=== PATIENT | female | born 1940 | race Caucasian/White ===

== ENCOUNTER 2018-09-22 09:11 | Emergency (ER) | payer MEDICARE, OTHER ==
--- OUTSIDE RECORDS SUMMARY | 2018-09-22 09:25 | XMS REPORT | Continuity of Care Document ---
:1940 External Reference #:[id number] Author Name Woody Ron MD Address [address] [place] [address] Care Team Providers Name Role Phone Miguelito Turpin MD Care Team Information Lace Inspector Unavailable Miguelito Turpin MD Primary Care Physician Unavailable Payers Date Identification Numbers Payment Provider Subscriber Policy Number: [id number] Medicare Shikaty Nunez PayID: [id number] [address] [place] [address] Expires: 2014 Policy Number: [id number] Lifetime Benefit Shikaty Nunez Solution PayID: [facility] [address] [address] [place] [address] Effective: 2014 Policy Number: Lifetime Benefit Shikaty Nunez [id number] Solution PayID: [facility] [address] [address] [place] [address] Problems Active Problems Provider Date Chronic obstructive lung disease Chilango Parada M.D., Onset: 05/01/2018 FAC 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., 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, bronchus and lung FACC Alcohol abuse, uncomplicated Chilango Parada M.D., Onset: 02/16/2018 FACC Syncope and collapse Chilango Parada M.D., Onset: 02/16/2018 FACC Malignant neoplasm of upper lobe, Chilango Parada M.D., Onset: 2017 bronchus or lung [facility] Essential hypertension Chilango Parada M.D., Onset: 06/26/2015 [facility] Mitral valve disorder Chilango Parada M.D., Onset: 02/14/2014 [facility] Aortic aneurysm Chilango Parada M.D., Onset: 02/14/2014 [facility] Tobacco user Chilango Parada M.D., Onset: 01/31/2012 [facility] Primary cardiomyopathy Chilango Parada M.D., Onset: 01/31/2012 [facility] Congestive heart failure Chilango Parada M.D., Onset: 01/31/2012 [facility] Family History Date Family Member(s) Observation Comments Father due to Unknown Causes () Father Heart Attack 81 Mother Melanoma 80 Social History Type Date Description Comments Sex Unknown Marital Status from liver cancer (1986) Lives With Alone Home Environment Lives Alone Diet Patient is on a low sodium diet Diet Patient is on a low fat diet 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 ADL's/IADL's Independent with all ADL's Tobacco Use Start: Unknown Current Cigarette Smoker 5-10 Cigarettes Daily Cigarette Use Pack Years - 56 ETOH Use Occasionally consumes alcohol Tobacco Use Start: Unknown Heavy tobacco smoker (more than 10 cigarettes/day) Recreational Drug Use Never Used Drugs Smoking Status Reviewed: 08/24/18 Heavy tobacco smoker (more than 10 cigarettes/day) Exercise Type/Frequency Exercises sporadically Allergies, Adverse Reactions, Alerts Active Allergies Reaction Severity Comments Date Sulfa Drugs 01/31/2012 Latex Swelling And Itching 06/20/2014 Codeine 06/20/2014 Oxycodone Percocet 06/20/2014 Spironolactone Hyperkalemia 12/23/2014 Medications Active Medications SIG Qnty Indications Ordering Provider Date Carvedilol Take One Tablet 180tabs I10 Perla Gomez 07/10/2015 25mg Tablets By Mouth Twice A Ledy, MSN, Day LOAN ASSOCIATE Ramipril Take One Capsule 90caps Chilango Parada 06/26/2015 10mg Capsules By Mouth Every Nato Boo, [facility] Day Spiriva Handihaler 1 by mouth every 30caps Woody Ron MD day 18mcg Capsules Aspirin Ec 1 po qd 60tabs Unknown 500mg Tablets DR Javier 1 po qweek Unknown 70mg Tablets Atorvastatin Calcium Take One Tablet 90tabs Chilango Parada By Mouth Every Nato Boo, [facility] 20mg Tablets Day History Medications Pred Forte 1 gtt qd Chilango Parada 03/21/2014 - 1% Suspension Nato Boo, [facility] Unknown Carvedilol 1 by mouth 180tabs Ines0 Ger Howell MD 03/21/2014 - 12.5mg Tablets twice a day 07/10/2015 Carvedilol 1 by mouth 180tabs Chilango Parada 02/14/2014 - 6.25mg Tablets twice a day Nato Boo, [facility] 03/21/2014 Ramipril Take One 90caps Chilango Parada 05/10/2012 - 5mg Capsules Capsule By Nato Boo, [facility] 06/26/2015 Mouth Every Day Spironolactone take one tablet 90tabs Mauricio Lira, 01/31/2012 - 25mg by mouth every , PhD 06/20/2014 Tablets day Carvedilol Take One Tablet 180tabs Chilango Parada 01/31/2012 - 3.125mg By Mouth Twice Nato Boo, [facility] 02/14/2014 Tablets A Day Furosemide 1 po qd prn 90tabs Chilango Parada 01/31/2012 - 40mg Tablets Nato Boo, [facility] Unknown Multi Complete 1 by mouth Unknown - Capsules every day Unknown Prednisone 4mg every am-- 270tabs Unknown - 1mg Tablets tapered dose Unknown Doxycycline by mouth twice 30caps Unknown - 150mg a day Unknown Capsules Vitamin B-1 po qd Unknown - 100mg Tablets Unknown Thiamine HCL 1 po qd Unknown - 100mg Unknown Tablets Apap Extra Strength 2 po tid Unknown - 500mg Unknown Tablets Albuterol Sulfate prn Unknown - Unknown (2.5mg/3ML) 0.083% Nebulizer Magnesium Oxide 400 1 po tid Unknown - 400mg Unknown Tablets Folic Acid 1 po qd 30tabs Unknown - 1mg Tablets Unknown Vitamin B-1 po qd Unknown - 100mg Tablets Unknown Lactobacillus 1 po qd Unknown - Acidophilus Unknown Powder Furosemide 1 po qd 30tabs Unknown - 40mg Tablets 01/31/2012 Digoxin 1 po qd 30tabs Unknown - 0.125mg Tablets 01/31/2012 Avelox po qd Unknown - 400mg Tablets Unknown Advair Diskus 2 puff bid Unknown - 05/03/2018 100-50mcg/Dose Aerosol Amlodipine Besylate 1 po qd 30tabs Unknown - 2.5mg 01/31/2012 Tablets Vital Signs Date Vital Result Comment 08/24/2018 1:32pm BP Systolic Sitting Left Arm 124 mmHg BP Diastolic Sitting Left Arm 72 mmHg Heart Rate 77 /min Respiratory Rate 17 /min Height 62 inches 5'2" Weight 98.00 lb BMI (Body Mass Index) 17.9 kg/m2 BSA (Body Surface Area) 1.41 m2 [place] body weight in kilograms 50 kg O2 % BldC Oximetry 96 % 05/03/2018 3:53pm BP Systolic Sitting Left Arm 120 mmHg BP Diastolic Sitting Left Arm 80 mmHg Heart Rate 72 /min Respiratory Rate 16 /min Height 62 inches 5'2" Weight 100.00 lb BMI (Body Mass Index) 18.3 kg/m2 BSA (Body Surface Area) 1.42 m2 [place] body weight in kilograms 50 kg O2 % BldC Oximetry 99 % 05/01/2018 11:13am BP Systolic Sitting Left Arm 138 mmHg BP Diastolic Sitting Left Arm 75 mmHg Heart Rate 62 /min Respiratory Rate 18 /min Height 62 inches 5'2" Weight 98.00 lb BMI (Body Mass Index) 17.9 kg/m2 BSA (Body Surface Area) 1.41 m2 [place] body weight in kilograms 50 kg O2 % BldC Oximetry 97 % 04/05/2018 3:01pm BP Systolic Sitting Left Arm 182 mmHg BP Diastolic Sitting Left Arm 111 mmHg Heart Rate 49 /min Respiratory Rate 20 /min Height 62 inches 5'2" Weight 97.00 lb BMI (Body Mass Index) 17.7 kg/m2 BSA (Body Surface Area) 1.41 m2 [place] body weight in kilograms 50 kg O2 % BldC Oximetry 90 % 02/16/2018 8:33am BP Systolic Sitting Left Arm 118 mmHg BP Diastolic Sitting Left Arm 62 mmHg Heart Rate 83 /min Respiratory Rate 16 /min Weight 102.00 lb O2 Saturation Level with Exercise 96 % 08/10/2017 8:50am BP Systolic Sitting Left Arm 114 mmHg BP Diastolic Sitting Left Arm 82 mmHg Heart Rate 77 /min Respiratory Rate 16 /min Height 62 inches 5'2" Weight 100.00 lb BMI (Body Mass Index) 18.3 kg/m2 BSA (Body Surface Area) 1.42 m2 [place] body weight in kilograms 50 kg 02/07/2017 8:49am BP Systolic Sitting Right Arm 124 mmHg BP Diastolic Sitting Right Arm 88 mmHg Heart Rate 80 /min Respiratory Rate 16 /min Height 62 inches 5'2" Weight 104.00 lb BMI (Body Mass Index) 19.0 kg/m2 BSA (Body Surface Area) 1.45 m2 [place] body weight in kilograms 50 kg 08/09/2016 8:24am BP Systolic Sitting Left Arm 132 mmHg BP Diastolic Sitting Left Arm 84 mmHg Heart Rate 71 /min Respiratory Rate 16 /min Height 62 inches 5'2" Weight 106.00 lb BMI (Body Mass Index) 19.4 kg/m2 BSA (Body Surface Area) 1.46 m2 02/11/2016 10:26am BP Systolic Sitting Left Arm 140 mmHg BP Diastolic Sitting Left Arm 80 mmHg Heart Rate 72 /min Respiratory Rate 16 /min Height 62 inches 5'2" Weight 100.00 lb BMI (Body Mass Index) 18.3 kg/m2 BSA (Body Surface Area) 1.42 m2 08/11/2015 11:00am BP Systolic Standing Resting Right Arm 130 mmHg BP Diastolic Standing Resting Right Arm 82 mmHg Heart Rate 65 /min Height 62 inches 5'2" Weight 105.00 lb BMI (Body Mass Index) 19.2 kg/m2 BSA (Body Surface Area) 1.45 m2 07/10/2015 9:25am BP Systolic Sitting Left Arm 152 mmHg BP Diastolic Sitting Left Arm 90 mmHg Heart Rate 80 /min Respiratory Rate 16 /min Height 62 inches 5'2" Weight 104.00 lb BMI (Body Mass Index) 19.0 kg/m2 BSA (Body Surface Area) 1.45 m2 06/26/2015 9:39am BP Systolic Sitting Left Arm 178 mmHg BP Diastolic Sitting Left Arm 96 mmHg Heart Rate 69 /min Respiratory Rate 16 /min Height 62 inches 5'2" Weight 104.00 lb BMI (Body Mass Index) 19.0 kg/m2 BSA (Body Surface Area) 1.45 m2 12/23/2014 9:04am BP Systolic Sitting Right Arm 138 mmHg BP Diastolic Sitting Right Arm 78 mmHg Heart Rate 72 /min Respiratory Rate 16 /min Height 62 inches 5'2" Weight 101.00 lb BMI (Body Mass Index) 18.5 kg/m2 BSA (Body Surface Area) 1.43 m2 06/20/2014 8:56am BP Systolic Sitting Right Arm 148 mmHg BP Diastolic Sitting Right Arm 90 mmHg Heart Rate 72 /min Respiratory Rate 18 /min Height 62 inches 5'2" Weight 101.00 lb BMI (Body Mass Index) 18.5 kg/m2 BSA (Body Surface Area) 1.43 m2 03/21/2014 1:29pm BP Systolic Sitting Right Arm 142 mmHg BP Diastolic Sitting Right Arm 84 mmHg Heart Rate 86 /min Respiratory Rate 16 /min Height 62 inches 5'2" Weight 94.00 lb BMI (Body Mass Index) 17.2 kg/m2 BSA (Body Surface Area) 1.39 m2 02/14/2014 11:21am BP Systolic Sitting Right Arm 156 mmHg BP Diastolic Sitting Right Arm 96 mmHg Heart Rate 85 /min Respiratory Rate 16 /min Height 62 inches 5'2" Weight 93.00 lb BMI (Body Mass Index) 17.0 kg/m2 BSA (Body Surface Area) 1.38 m2 08/15/2013 1:53pm BP Systolic Sitting Right Arm 136 mmHg BP Diastolic Sitting Right Arm 78 mmHg Heart Rate 74 /min Respiratory Rate 16 /min Height 62 inches 5'2" Weight 88.00 lb BMI (Body Mass Index) 16.1 kg/m2 BSA (Body Surface Area) 1.35 m2 06/12/2013 2:47pm BP Systolic Sitting Right Arm 138 mmHg BP Diastolic Sitting Right Arm 72 mmHg Heart Rate 70 /min Respiratory Rate 16 /min Height 62 inches 5'2" Weight 89.00 lb BMI (Body Mass Index) 16.3 kg/m2 BSA (Body Surface Area) 1.36 m2 11/13/2012 11:03am BP Systolic Sitting Right Arm 130 mmHg BP Diastolic Sitting Right Arm 88 mmHg Heart Rate 70 /min Respiratory Rate 14 /min Height 62 inches 5'2" Weight 88.00 lb BMI (Body Mass Index) 16.1 kg/m2 BSA (Body Surface Area) 1.35 m2 05/10/2012 11:21am BP Systolic Sitting Left Arm 116 mmHg BP Diastolic Sitting Left Arm 88 mmHg Heart Rate 80 /min Regular Respiratory Rate 18 /min Height 62 inches 5'2" Weight 85.00 lb BMI (Body Mass Index) 15.5 kg/m2 02/07/2012 12:58pm BP Systolic Sitting Left Arm 100 mmHg BP Diastolic Sitting Left Arm 64 mmHg Heart Rate 68 /min Regular Respiratory Rate 16 /min Height 62 inches 5'2" Weight 81.00 lb BMI (Body Mass Index) 14.8 kg/m2 01/31/2012 1:32pm BP Systolic Sitting Right Arm 102 mmHg BP Diastolic Sitting Right Arm 72 mmHg Heart Rate 94 /min Respiratory Rate 16 /min Height 62 inches 5'2" Weight 83.00 lb BMI (Body Mass Index) 15.2 kg/m2 Results Test Date Facility Test Result H/L Range Note Laboratory test 04/19/2018 [facility] Point of Care 99 mg/dL N 70-100 1 finding [phone] Glucose Laboratory test 08/06/2016 [facility] Magnesium 1.3 mg/dL Low 1.8-2.4 [address] [place], [place] [id number] [phone] CBS W/Automated 08/06/2016 [facility] White Blood 7.6 K/uL N 3.1-10.[address] Count [place], [place] [id number] [phone] Red Blood Count 3.70 M/uL Low 3.90-5.40 Hemoglobin 13.0 gm/dL N 11.6-15.8 Hematocrit 38.5 % N 36.0-46.1 Mean Cell Volume 104.1 fl High 80.9-99.0 Mean Corpuscular HGB 35.1 pg High 25.9-32.7 Mean Corpuscular HGB Conc 33.8 g/dL N 30.8-34.3 Platelet Count 221 K/uL N 150-400 Red Cell Distri Width SD 52.4 fl High 3-47 Red Cell Distri Width %CV 13.9 % N 11.7-14.4 Mean Platelet Volume 10.2 fL N 8.9-12.4 Neut% 74.0 % High 40.4-72.8 Lymph % 16.3 % Low 20.0-42.0 [place] % 7.2 % N 4.3-13.2 Eo% 2.2 % N 0.0-6.6 Bas% 0.3 % N 0.0-1.1 Neut# 5.65 K/uL N 1.8-7.0 Lymph # 1.24 K/uL N 1.0-4.0 [place] # 0.55 K/uL N 0.3-0.9 Eos # 0.17 K/uL N 0.0-0.5 Baso # 0.02 K/uL N 0.0-0.1 Comprehensive Metabolic 08/06/2016 [facility] Glucose 109 mg/dL High 74-106 Panel [address] [place] [address] [phone] BUN 27 mg/dL High 7-18 Creatinine 1.1 mg/dL N 0.6-1.3 Glom Filtration Rate, Estimate 52 mL/min >60 If >60 mL/min >60 3 BUN/Creat 24.5 ratio Sodium 145 mmol/L N 136-145 Potassium 4.5 mmol/L N 3.5-5.1 Chloride 112 mmol/L High 98-107 Carbon Dioxide 24 mmol/L N 21-32 Anion Gap 9 mEq/L N 8-16 Calcium 9.1 mg/dL N 8.5-10.1 Total Protein 7.3 g/dL N 6.4-8.2 Albumin 3.6 g/dL N 3.4-5.0 Globulin 3.7 g/dL N 1.9-4.3 Alb/Glob 1.0 ratio Bilirubin,Total 0.6 mg/dL N 0.2-1.0 Sgot/Ast 19 U/L N 15-37 SGPT/Alt 20 U/L N 12-78 Alkaline Phosphatase 89 U/L N 45-117 LDL Cholesterol 08/06/2016 [facility] Cholesterol 224 mg/dL High <200 4 Profile [address] [place] [address] [phone] Triglycerides 75 mg/dL <150 5 HDL Cholesterol 141 mg/dL >40 6 LDL-Cholesterol 68 mg/dL < 100 7 Basic Metabolic Panel 07/09/2015 [facility] Glucose 97 mg/dL 74-106 [address] [place] [address] [phone] BUN 18 mg/dL 7-18 Creatinine 1.0 mg/dL 0.6-1.3 Glom Filtration Rate, Estimate 58 mL/min >60 If >60 mL/min >60 8 BUN/Creat 18.0 ratio Sodium 143 mmol/L 136-145 Potassium 5.0 mmol/L 3.5-5.1 Chloride 112 mmol/L High 98-107 Carbon Dioxide 25 mmol/L 21-32 Anion Gap 6 mEq/L Low 8-16 Calcium 9.5 mg/dL 8.5-10.1 Basic Metabolic Panel 12/23/2014 [facility] Glucose 140 mg/dL High 74-106 [address] [place] [address] [phone] BUN 23 mg/dL High 7-18 Creatinine 1.0 mg/dL 0.6-1.3 Glom Filtration Rate, Estimate 58 mL/min >60 If >60 mL/min >60 9 BUN/Creat 23.0 ratio Sodium 141 mmol/L 136-145 Potassium 4.7 mmol/L 3.5-5.1 Chloride 109 mmol/L High 98-107 Carbon Dioxide 25 mmol/L 21-32 Anion Gap 7 mEq/L Low 8-16 Calcium 9.4 mg/dL 8.5-10.1 Comprehensive Metabolic 06/20/2014 [facility] Glucose 112 mg/dL High 74-106 Panel [address] [place] [address] [phone] BUN 20 mg/dL High 7-18 Creatinine 1.1 mg/dL 0.6-1.3 Glom Filtration Rate, Estimate 52 mL/min >60 If >60 mL/min >60 10 BUN/Creat 18.1 ratio Sodium 142 mmol/L 136-145 Potassium 5.8 mmol/L High 3.5-5.1 Chloride 111 mmol/L High 98-107 Carbon Dioxide 23 mmol/L 21-32 Anion Gap 8 mEq/L 8-16 Calcium 10.0 mg/dL 8.5-10.1 Total Protein 7.5 g/dL 6.4-8.2 Albumin 3.8 g/dL 3.4-5.0 Globulin 3.7 g/dL 1.9-4.3 Alb/Glob 1.0 ratio Bilirubin,Total 0.4 mg/dL 0.2-1.0 Sgot/Ast 30 U/L 15-37 SGPT/Alt 36 U/L 12-78 Alkaline Phosphatase 88 U/L 45-117 Basic Metabolic Panel 08/15/2013 [facility] Glucose 144 mg/dL High 76-115 [address] [place], [place] [id number] [phone] BUN 42 mg/dL High 5-23 Creatinine 1.4 mg/dL 0.5-1.4 Glom Filtration Rate, Estimate 39 mL/min >60 If 48 mL/min >60 11 BUN/Creat 30.0 ratio Sodium 136 mmol/L 136-145 Potassium 4.5 mmol/L 3.5-5.1 Chloride 106 mmol/L 98-107 Carbon Dioxide 24 mEq/L 18-29 Anion Gap 11 mEq/L 8-16 Calcium 10.1 mg/dL 8.5-10.1 Laboratory test finding 02/02/2012 [facility] Magnesium 2.1 mg/dL 1.7-2.3 [address] [place] [address] [phone] Basic Metabolic Panel 02/02/2012 [facility] Glucose 98 mg/dL 76-115 [address] [place] [address] [phone] BUN 21 mg/dL 5-23 Creatinine 0.7 mg/dL 0.5-1.4 Glom Filtration Rate, Estimate >60 mL/min >60 If >60 mL/min >60 12 BUN/Creat 30.0 ratio Sodium 139 mmol/L 136-145 Potassium 4.5 mmol/L 3.5-5.1 Chloride 102 mmol/L 98-107 Carbon Dioxide 28 mEq/L 18-29 Anion Gap 14 mEq/L 8-16 Calcium 10.0 mg/dL 8.5-10.1 Laboratory test 01/03/2012 [facility] Magnesium 2.7 mg/dL High 1.7-2.3 13 finding [address] [place] [address] [phone] NT-proBNP 80342.0 pg/mL High <325.0 14 Basic Metabolic Panel 01/03/2012 [facility] Glucose 142 mg/dL High 76-115 [address] [place] [address] [phone] BUN 31 mg/dL High 5-23 Creatinine 1.9 mg/dL High 0.5-1.4 Glom Filtration Rate, Estimate 28 mL/min >60 If 34 mL/min >60 15 BUN/Creat 16.3 ratio Sodium 137 mmol/L 136-145 Potassium 6.4 mmol/L High 3.5-5.1 Chloride 103 mmol/L 98-107 Carbon Dioxide 19 mEq/L 18-29 Anion Gap 21 mEq/L High 8-16 Calcium 8.2 mg/dL Low 8.5-10.1 1 Bench Examiner: [id number] E78.5,I42.0 3 Note: Persistent reduction for 3 months or more in an eGFR <60 mL/min/1.73 m2 defines CKD. Patients with eGFR values >/=60 mL/min/1.73 m2 may also have CKD if evidence of persistent proteinuria is present. The original MDRD equation for estimated GFR is not valid for patients less than 18 years of age. Additional information may be found at [email or web address]. 4 Reference Guidelines*: Desirable: ........... < 200 mg/dL Borderline High: ..... 200-239 mg/dL High: ................ >=240 mg/dL * The National Cholesterol Education Program (NCEP) 5 Reference Guidelines*: Normal: ............. < 150 mg/dL Borderline High: .... 150-199 mg/dL High: ............... 200-499 mg/dL Very High: .......... > 500 mg/dL * Source: National Cholesterol Education Program (NCEP) 6 Reference Guidelines*: Low HDL: ..... < 40 mg/dL Normal: ..... 40-60 mg/dL Desirable: ... > 60 mg/dL *The National Cholesterol Education Program(NCEP) 7 Reference Guidelines*: Optimal:........... <100 mg/dL Near Optimal....... 100-129 mg/dL Borderline High.... 130-159 mg/dL High............... 160-189 mg/dL Very High.......... >=190 mg/dL * Source: National Cholesterol Education Program (NCEP) 8 Note: Persistent reduction for 3 months or more in an eGFR <60 mL/min/1.73 m2 defines CKD. Patients with eGFR values >/=60 mL/min/1.73 m2 may also have CKD if evidence of persistent proteinuria is present. The original MDRD equation for estimated GFR is not valid for patients less than 18 years of age. Additional information may be found at www.[email or web address]. 9 Note: Persistent reduction for 3 months or more in an eGFR <60 mL/min/1.73 m2 defines CKD. Patients with eGFR values >/=60 mL/min/1.73 m2 may also have CKD if evidence of persistent proteinuria is present. The original MDRD equation for estimated GFR is not valid for patients less than 18 years of age. Additional information may be found at www.[email or web address]. 10 Note: Persistent reduction for 3 months or more in an eGFR <60 mL/min/1.73 m2 defines CKD. Patients with eGFR values >/=60 mL/min/1.73 m2 may also have CKD if evidence of persistent proteinuria is present. The original MDRD equation for estimated GFR is not valid for patients less than 18 years of age. Additional information may be found at www.[email or web address]. 11 Note: Persistent reduction for 3 months or more in an eGFR <60 mL/min/1.73 m2 defines CKD. Patients with eGFR values >/=60 mL/min/1.73 m2 may also have CKD if evidence of persistent proteinuria is present. The original MDRD equation for estimated GFR is not valid for patients less than 18 years of age. Additional information may be found at [email or web address]. 12 Note: Persistent reduction for 3 months or more in an eGFR <60 mL/min/1.73 m2 defines CKD. Patients with eGFR values >/=60 mL/min/1.73 m2 may also have CKD if evidence of persistent proteinuria is present. The original MDRD equation for estimated GFR is not valid for patients less than 18 years of age. Additional information may be found at [email or web address]. 13 CHECKED + CALLED K TO JULEE Peres AT 1213 01/03/12 14 Increased levels of BNP may also be seen in the following conditions: AMI (first 2-5 days) Hypertension with LVH Acute Dyspnea Pulmonary Embolism Obstructive Pulmonary Disease Hyperthyroidism Liver Cirrhosis with Ascites Renal Failure (acute or chronic) 15 Note: Persistent reduction for 3 months or more in an eGFR <60 mL/min/1.73 m2 defines CKD. Patients with eGFR values >/=60 mL/min/1.73 m2 may also have CKD if evidence of persistent proteinuria is present. The original MDRD equation for estimated GFR is not valid for patients less than 18 years of age. Additional information may be found at [email or web address]. Procedures Date Code Description Status 04/11/2018 92536 Bronchospasm Provocation Evaluation Multi Spirometric Completed Determinati 04/11/2018 35195 Spirometry Completed 02/22/2018 03944 Event Monitor Inter/Review Only Completed 08/24/2017 69537 Echocardiogram Complete Completed 08/10/2017 40691 EKG-Tracing And Report Completed 08/09/2016 15922 EKG-Tracing And Report Completed 08/04/2016 87655 Echocardiogram Complete Completed 08/11/2015 97828 EKG-Tracing And Report Completed 07/04/2015 17981 Echocardiogram Complete Completed 07/15/2014 57932 Anesthesia, Lower Leg Bone Surgery Open Not Otherwise Spec Completed 07/01/2014 99176 Echocardiogram Complete Completed 03/12/2014 78634 Doppler ECHO Color Flow Mapping Completed 03/12/2014 42037 Doppler Echocardiogram Complete Completed 03/12/2014 05111 Transesophageal Echocardiogram Completed 02/14/2014 84393 EKG-Tracing And Report Completed 06/04/2013 52258 Echocardiogram Complete Completed 10/25/2012 83667 Echocardiogram Complete Completed 01/31/2012 47034 EKG-Tracing And Report Completed 01/02/2012 82212 Echocardiogram Complete Completed 11/23/2007 49452 Holter Monitor 24HR Inter/Report Completed Encounters Type Date Location Provider Dx Diagnosis Office Visit 08/24/2018 Pulmonology Brandi Pham PA J44.9 Chronic obstructive 1:20p pulmonary disease, unspecified 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, bronchus and lung F17.210 Nicotine dependence, cigarettes, uncomplicated F10.10 Alcohol abuse, uncomplicated Z71.6 Tobacco abuse counseling Office Visit 05/03/2018 3:45p Pulmonology Woody Ron MD 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, bronchus and lung J44.9 Chronic obstructive pulmonary disease, unspecified Office Visit 05/01/2018 11:00a Cardiology Office Chilango Parada D38.1 Neoplasm of M., MDavon, [facility] uncertain behavior of trachea, bronchus and lung J44.9 Chronic obstructive pulmonary disease, unspecified F17.210 Nicotine dependence, cigarettes, uncomplicated I10 Essential (primary) hypertension I42.9 Cardiomyopathy, unspecified R55 Syncope and collapse Office Visit 04/05/2018 3:00p Pulmonology Woody Ron MD 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, bronchus and lung J44.9 Chronic obstructive pulmonary disease, unspecified F17.210 Nicotine dependence, cigarettes, uncomplicated Z71.6 Tobacco abuse counseling I10 Essential (primary) hypertension Office Visit 02/16/2018 Cardiology Chilango Parada F10.10 Alcohol abuse, 8:20a Office Nato Boo, [facility] uncomplicated F17.210 Nicotine dependence, cigarettes, uncomplicated I71.9 Aortic aneurysm of unspecified site, without rupture I42.9 Cardiomyopathy, unspecified C34.10 Malignant neoplasm of upper lobe, unsp bronchus or lung R55 Syncope and collapse Office Visit 08/10/2017 Cardiology Perla Gomez 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 8:40a Office GORGE Villafana, cardiomyopathy LOAN ASSOCIATE I10 Essential (primary) hypertension I34.0 Nonrheumatic mitral (valve) insufficiency I71.9 Aortic aneurysm of unspecified site, without rupture E78.5 Hyperlipidemia, unspecified Office Visit 02/07/2017 Cardiology Chilango Parada 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 8:40a Office Nato Boo, [facility] cardiomyopathy I10 Essential (primary) hypertension I34.0 Nonrheumatic mitral (valve) insufficiency Office Visit 08/09/2016 Cardiology Chilango Parada 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 8:20a Office Nato Boo, [facility] cardiomyopathy I10 Essential (primary) hypertension I34.0 Nonrheumatic mitral (valve) insufficiency Office Visit 02/11/2016 Cardiology Perla Gomez 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 10:20a Office GORGE Villafana, cardiomyopathy LOAN ASSOCIATE I10 Essential (primary) hypertension I34.0 Nonrheumatic mitral (valve) insufficiency I71.9 Aortic aneurysm of unspecified site, without rupture F17.200 Nicotine dependence, unspecified, uncomplicated E78.5 Hyperlipidemia, unspecified Office Visit 08/11/2015 11:00a Cardiology Office Chilango Parada I10 Essential Nato Boo, [facility] (primary) hypertension 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 cardiomyopathy I34.0 Nonrheumatic mitral (valve) insufficiency F17.200 Nicotine dependence, unspecified, uncomplicated I71.9 Aortic aneurysm of unspecified site, without rupture Z71.6 Tobacco abuse counseling Office Visit 07/10/2015 9:20a Cardiology Office Perla Gomez I10 Essential Ledy, GORGE, (primary) [employer] hypertension 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 cardiomyopathy I34.0 Nonrheumatic mitral (valve) insufficiency F17.200 Nicotine dependence, unspecified, uncomplicated I71.9 Aortic aneurysm of unspecified site, without rupture Office Visit 06/26/2015 Cardiology Chilango Parada 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 9:30a Office Nato Boo, [facility] cardiomyopathy I34.0 Nonrheumatic mitral (valve) insufficiency I10 Essential (primary) hypertension F17.200 Nicotine dependence, unspecified, uncomplicated Z71.6 Tobacco abuse counseling Office Visit 12/23/2014 Cardiology Perla Gomez 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 Office GORGE Villafana, cardiomyopathy LOAN ASSOCIATE I34.0 Nonrheumatic mitral (valve) insufficiency F17.200 Nicotine dependence, unspecified, uncomplicated I71.9 Aortic aneurysm of unspecified site, without rupture Office Visit 06/20/2014 Cardiology Chilango Parada 425.4 Cardiomyopathy 8:50a Office Nato Boo, [facility] Other Prim 424.0 Mitral Valve Disorder 305.1 Tobacco Use Disorder Office Visit 03/21/2014 Cardiology Chilango Parada 425.4 Cardiomyopathy 1:20p Office Nato Boo, [facility] Other Prim 424.0 Mitral Valve Disorder 305.1 Tobacco Use Disorder Office Visit 02/14/2014 Cardiology Chilango Parada 425.4 Cardiomyopathy 11:20a Office M., M.D., [facility] Other Prim 428.0 Congestive Heart Failure Unspecified 305.1 Tobacco Use Disorder 441.9 Aneurysm Aortic W/O Rupture Unspec Site 424.0 Mitral Valve Disorder Office Visit 08/15/2013 Cardiology Perla Gomez 425.4 Cardiomyopathy 1:40p Office GORGE Villafana, Other Prim LOAN ASSOCIATE 428.0 Congestive Heart Failure Unspecified 305.1 Tobacco Use Disorder 441.9 Aneurysm Aortic W/O Rupture Unspec Site Office Visit 06/12/2013 Cardiology Chilango Parada 425.4 Cardiomyopathy 2:40p Office Nato Boo, [facility] Other Prim 428.0 Congestive Heart Failure Unspecified 305.1 Tobacco Use Disorder Office Visit 11/13/2012 Cardiology Perla Gomez 425.4 Cardiomyopathy 11:00a Office GORGE Villafana, Other Prim LOAN ASSOCIATE 428.0 Congestive Heart Failure Unspecified 305.1 Tobacco Use Disorder Office Visit 05/10/2012 Cardiology Chilango Parada 425.4 Cardiomyopathy 11:20a Office Nato Boo, [facility] Other Prim 428.0 Congestive Heart Failure Unspecified Office Visit 02/07/2012 Cardiology Perla Gomez 425.4 Cardiomyopathy 1:00p Office GORGE Villafana, Other Prim LOAN ASSOCIATE 428.0 Congestive Heart Failure Unspecified 305.1 Tobacco Use Disorder Office Visit 01/31/2012 1:00p Cardiology Chilango Parada 428.0 Congestive Heart Office Nato Boo, FACC Failure Unspecified 425.4 Cardiomyopathy Other Prim 305.1 Tobacco Use Disorder Office Visit 01/03/2012 2:04p Cardiology Chilango Parada 428.0 Congestive Heart Office Nato Boo, FACC Failure Unspecified Plan of Treatment Future Appointment(s):08/24/2019 10:00 am - Brandi Pham PA at [id number]/ 01/2019 8:20 am - Chilango Parada M.D., FACC at Cardiology [id number] - Brandi Pham PAJ44.9 Chronic obstructive pulmonary disease, unspecifiedComments:Please continue the Spiriva Handihaler dailyAvoid pollution , fumes and second hand smoke.Drink at least 10 glasses fluid daily. Is there anything I can do on my own to feel better? ?? Yes. If you smoke, stop. This is the most important thing you can do for your chronic bronchitis or COPD. It does notmatter how long you have smoked or how much you smoke. Quitting will slow your disease and help you feel better.You should also get the flu shot every fall and the pneumonia vaccine at least once. Infections like the flu and pneumonia can hurt your lungs. It's important to try to prevent them.Follow up: 1 year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, bronchus and lungComments :We will recheck your chest CT in 12-18 mbfnleM98.210 Nicotine dependence, cigarettes, iqayffxryetinW33.10 Alcohol abuse, rjohndlgdyrhkC82.6 Tobacco abuse counselingComments:Counseled for 5 minutes.AllComments:Please see your primary care annually and consider routine screenings, such as colonoscopy and mammogram Goals 08/24/2018 - Brandi Pham, GUERITAJ44.9 Chronic obstructive pulmonary disease, unspecifiedMaintain activity level despite shortness of breath. Improve exercise capacity. Reduce frequency andseverity of exacerbations(flare-ups). Prolong survival and improve quality of life.
[2018-09-22 09:46] VITALS: BP 144/93
--- NOTE | 2018-09-22 10:35 | UC ---
Neck Pain HPI - HPI Summary HPI Summary: 78-year-old female presents with neck complaint. Patient states that for on and off since last February 2018 she has had some intermittent neck discomfort. He went to physical therapy for this which did cause the neck pain to worsen. Swelling on both sides of her neck and pain on both sides. Right-sided. It can be up to 10 out of 10 that she take aspirin and it improves his symptoms dramatically. Denies any numbness or tingling down an arm or leg. She states she has seen her primary care doctor for this. Her PCP today but states he could not get in for 2 weeks if worse into urgent care. Assessment does improve her symptoms. Her symptoms. She and her neck but does cause some discomfort right greater than left diffusely in the neck. A recent weight change or history of trauma to the neck. - History of Current Complaint Chief Complaint: UCUpperExtremity Stated Complaint: RT SHOULDER SWELLING AND PAIN Time Seen by Provider: 09/22/18 09:57 Timing: Constant Onset/Duration: Gradual Onset Pain Intensity: 6 - Allergies/Home Medications Allergies/Adverse Reactions: Allergies Allergy/AdvReac Type Severity Reaction Status Date / Time MS Sulfa Antibiotics Allergy Severe NAUSEA, Verified 11/15/15 17:50 [Sulfa Antibiotics] HEADACHE, VISION LOSS, RASH MS Oxycodone [Oxycodone] Allergy Intermediate NAUSEA, Verified 11/15/15 17:50 DIZZINESS PMH/Surg Hx/FS Hx/Imm Hx Previously Healthy: Yes Cardiovascular History: Hypertension Respiratory History: COPD Psychological History: Anxiety, Depression - Surgical History Surgical History: Yes Surgery Procedure, Year, and Place: AAA REPAIR WITH STENTS 2013 - Family History Known Family History: Positive: Cardiac Disease, Hypertension - Social History Alcohol Use: Daily Substance Use Type: None Smoking Status (MU): Heavy Every Day Tobacco Smoker Type: Cigarettes Amount Used/How Often: 1-1/2 PPD Length of Time of Smoking/Using Tobacco: since age 16 Have You Smoked in the Last Year: Yes Household Exposure Type: Cigarettes - Immunization History Most Recent Tetanus Shot: OVER 5 YEARS AGO Review of Systems All Other Systems Reviewed And Are Negative: Yes Motor: Negative: Decreased ROM, Weakness Musculoskeletal: Positive: Arthralgia - Neck pain. Negative: Decreased ROM Physical Exam Triage Information Reviewed: Yes Appearance: Well-Appearing, No Pain Distress, Well-Nourished Vital Signs: Initial Vital Signs Temp 97.9 F 09/22/18 09:34 Pulse 67 09/22/18 09:34 Resp 15 09/22/18 09:34 BP 144/93 09/22/18 09:34 Pulse Ox 100 09/22/18 09:34 Vital Signs Reviewed: Yes Eye Exam: Normal ENT Exam: Normal Dental Exam: Normal Neck exam: Normal Neck: Positive: 1 Respiratory Exam: Normal Cardiovascular Exam: Normal Musculoskeletal Exam: Normal Musculoskeletal: Positive: Strength Intact, ROM Intact, Other: - Diffuse paraspinal tenderness bilaterally of the cervical spine from C3 to see 7. Right greater than left. Mild soft tissue swelling bilaterally right greater than left. Nontender. Mobile. Full range of motion of the neck. Strength upper extremities 5 out of 5. Full range of motion of shoulders. Neurological Exam: Normal Psychological Exam: Normal Skin Exam: Normal Neck Pain Course/Dx - Course Course Of Treatment: X-ray performed based on duration of symptoms. It shows no acute concerns but does show some cervical spine straightening as well as some severe DDD. No acute concerns noted. No hard bony masses appreciated. Patient is aware she needs to follow up with her primary care doctor for further evaluation. Advised patient since she has tried physical therapy and felt as well as over- the-counter medications not helping much that she likely does require higher level of workup. She could likely benefit from MRI or other imaging that we cannot perform at this facility. She is aware if not appropriately evaluated and diagnosed her could be concern for cancer or worsening of her condition. She is to follow-up with her primary care doctor for further imaging and/or referral to a specialist. Patient is aware and agreeable to plan. Return to urgent care as needed. - Differential Dx/Diagnosis Differential Dx/HQI/PQRI: Arthritis, Cervical Fracture, Neoplasm, Sprain, Strain Provider Diagnosis: Cervical pain (neck) Discharge - Sign-Out/Discharge Documenting (check all that apply): Patient Departure All imaging exams completed and their final reports reviewed: Yes - Discharge Plan Condition: Good Disposition: HOME Patient Education Materials: Neck Pain (ED) Referrals: Miguelito Turpin MD [Primary Care Provider] - 3 Days Additional Instructions: Today your x-ray revealed severe disc degenerative disease no acute concerns - Billing Disposition and Condition Condition: GOOD Disposition: Home
== END 2018-09-22 11:06 | disposition home or self-care (01) ==
LOC: UCCORT 09:11
DX: M54.2 Cervicalgia (principal); I10 Essential (primary) hypertension; F17.210 Nicotine dependence, cigarettes, uncomplicated
CPT/HCPCS: 72050; 99211; G0463

== ENCOUNTER 2019-04-23 08:54 | Emergency (ER) | payer MEDICARE, OTHER ==
[2019-04-23 09:26] VITALS: BP 125/74
[2019-04-23 09:39] LABS: Influenza B Molecular POSITIVE (Negative)
[2019-04-23] MEDS ORDERED: Albuterol/Ipratropium NEB.SOL* Albuterol 2.5 MG/Ipratropium 0.5 MG 3 ML INH ONE (09:40)
--- NOTE | 2019-04-23 10:17 | UC ---
FLU HPI - HPI Summary HPI Summary: 78-year-old woman comes in with chief complaint of fever chills body aches cough chest congestion shortness of breath. Patient does have COPD. She is Spiriva for COPD. Symptoms started 3-4 days ago. Patient does feel short of breath which is worse with activity. - History of Current Complaint Chief Complaint: UCRespiratory Stated Complaint: COUGH,HEADACHE,WEAK,BODYACHES Time Seen by Provider: 04/23/19 09:26 Pain Intensity: 7 - Allergy/Home Medications Allergies/Adverse Reactions: Allergies Allergy/AdvReac Type Severity Reaction Status Date / Time bee venom protein (honey bee) Allergy Severe Anaphylatic Verified 04/23/19 09:15 Shock oxycodone Allergy Unknown nausea, Verified 04/23/19 09:15 dizziness Sulfa (Sulfonamide Allergy Unknown nausea, Verified 04/23/19 09:15 Antibiotics) headache Home Medications: Home Medications Aspirin [Aspirin EC] 500 mg PO DAILY 04/23/19 [History Confirmed 04/23/19] Cholecalciferol TAB* [Vitamin D TAB*] 2,000 unit PO DAILY 04/23/19 [History Confirmed 04/23/19] PMH/Surg Hx/FS Hx/Imm Hx Previously Healthy: Yes Cardiovascular History: Hypertension Respiratory History: COPD - Surgical History Surgical History: Yes Surgery Procedure, Year, and Place: AAA REPAIR WITH [facility] 2013 - Family History Known Family History: Positive: Cardiac Disease, Hypertension - Social History Alcohol Use: Daily Substance Use Type: None Smoking Status (MU): Heavy Every Day Tobacco Smoker Type: Cigarettes Amount Used/How Often: 1 ppd Length of Time of Smoking/Using Tobacco: since age 16 Have You Smoked in the Last Year: Yes Household Exposure Type: Cigarettes - Immunization History Most Recent Tetanus Shot: OVER 5 YEARS AGO Review of Systems All Other Systems Reviewed And Are Negative: Yes Constitutional: Positive: Chills, Other - SEE HPI Skin: Positive: Negative Eyes: Positive: Negative ENT: Positive: Nasal Discharge Respiratory: Positive: Shortness Of Breath, Cough, Other - SEE HPI Cardiovascular: Positive: Negative Gastrointestinal: Positive: Negative Motor: Positive: Negative Neurovascular: Positive: Negative Musculoskeletal: Positive: Myalgia Neurological: Positive: Negative Psychological: Positive: Negative Physical Exam Triage Information Reviewed: Yes Appearance: No Pain Distress, Well-Nourished, Ill-Appearing - MILD Vital Signs: Initial Vital Signs Temp 100.4 F 04/23/19 09:18 Pulse 90 04/23/19 09:18 Resp 26 04/23/19 09:18 BP 125/74 04/23/19 09:18 Pulse Ox 90 04/23/19 09:18 Vital Signs Reviewed: Yes Eye Exam: Normal Eyes: Positive: Conjunctiva Clear ENT: Positive: Nasal drainage, TMs normal Neck: Positive: Supple Respiratory: Positive: Respiratory distress - MILD, Rhonchi, Wheezing Cardiovascular: Positive: RRR Musculoskeletal: Positive: Strength Intact, ROM Intact, No Edema Neurological: Positive: Alert, Muscle Tone Normal Psychological: Positive: Normal Response To Family, Age Appropriate Behavior Skin Exam: Normal Flu Course/Dx - Course Course Of Treatment: Child Support Specialist: Rehan Carmona C ([id number]) Director Of Collections And Archives: SURI ( CANDICEANCE) Report Date: 04/23/2019 10:06:00 Report Status: Final ====== Start of Report Content Patient Name: ROB SHERWOOD Medical Record# : [id number] Ordering Physician: Yovanny Juarez MD Acct.#: [id number] : 1940 Age: 78 Sex: F Location: [facility]RG[facility] CARE [facility] Exam Date: 04/23/19939 ADM Status: REG ER Order Information: CHEST PA LAT 2 VWS Accession Number: [id number] CPT: 58527 INDICATION: Cough, shortness of breath, fever. Malignant neoplasm of the trachea COMPARISON: April 19, 2018 PET/CT TECHNIQUE: Dual energy PA and lateral views of the chest obtained. REPORT: Elevated lung volumes and both course and and patchy rarefaction of interstitial markings. Bilateral pulmonary nodules with event representative 0.9 cm nodule at the RIGHT upper lung zone and 1.0 cm nodule at the LEFT lower lung zone similar to the prior CT. Mild asymmetric alveolar consolidation at the RIGHT lung base concerning for pneumonia given the clinical context. Probable small pleural effusions. Mild cardiomegaly. Unremarkable central pulmonary vasculature. Mildly tortuous descending thoracic aorta. Stent graft at the abdominal aorta partially visualized. IMPRESSION: #. Stigmata of chronic obstructive pulmonary disease and multiple bilateral pulmonary nodules corresponding with findings on April 19, 2018 PET/CT. #. Mild asymmetric alveolar consolidation at the RIGHT lung base concerning for pneumonia given the clinical context. <Electronically signed by Rehan Carmona MD in OV> 04/23/19 1003 Dictated By: Rehan Carmona MD Dictated Date/ Time: 04/23/19956 Transcribed Date/Time: 04/23/19956 Copy to: CC:Miguelito Turpin MD; Yovanny Juarez MD Imaging - [facility] - [place] [facility] [address] [place] [address] ph ) ph ([phone]) ph ([phone]) End of Report Content With the patient being at high risk with a pneumonia and influenza and COPD I recommended further evaluation in the emergency department. I discussed this with a provider at the [place] emergency department. - Differential Dx/Diagnosis Provider Diagnosis: Pneumonia, COPD (chronic obstructive pulmonary disease), Influenza Discharge ED - Sign-Out/Discharge Documenting (check all that apply): Patient Departure All imaging exams completed and their final reports reviewed: Yes - Discharge Plan Condition: Stable Disposition: HOME Patient Education Materials: Influenza (ED), COPD (Chronic Obstructive Pulmonary Disease) (ED), Community Acquired Pneumonia (ED) Referrals: Miguelito Turpin MD [Primary Care Provider] - Additional Instructions: GO DIRECTLY TO THE EMERGENCY DEPARTMENT FOR FURTHER EVALUATION AND CARE OF YOUR COPD, PNEUMONIA AND INFLUENZA. - Billing Disposition and Condition Condition: STABLE Disposition: Home
== END 2019-04-23 10:32 | disposition home or self-care (01) ==
LOC: UCCORT 08:54
DX: J44.9 Chronic obstructive pulmonary disease, unspecified (principal); J18.9 Pneumonia, unspecified organism; J11.1 Influenza due to unidentified influenza virus with other respiratory manifestations; I10 Essential (primary) hypertension; F17.210 Nicotine dependence, cigarettes, uncomplicated; Z91.030 Bee allergy status; Z88.5 Allergy status to narcotic agent; Z88.2 Allergy status to sulfonamides; Z79.82 Long term (current) use of aspirin
CPT/HCPCS: 71046; 99212; A9270-GY; G0463